=== PATIENT | male | born 1990 | race Caucasian/White ===

== ENCOUNTER 2018-02-22 17:28 | Emergency (ER) | payer OTHER ==
[~2018-02-22] VITALS: Ht 180.3 cm; Wt 80.7 kg
--- NOTE | 2018-02-22 17:30 | NUR ---
BIB SELF W C/O RUE NUMBNESS RADIATING TO NECK AND BACK, DIZZINESS SINCE 1430 TODAY, TO ER BED 11, HOOKED TO MONITOR, AWAITING MD VOGT
--- NOTE | 2018-02-22 17:40 | NUR ---
DR COLLIER AT BEDSIDE
[2018-02-22] MEDS ORDERED: HYDROCODONE/APAP 5/325MG 1 EACH TABLET ONE (17:49)
[2018-02-22] MEDS ORDERED: ONDANSETRON 4 MG TAB.RAPDIS ONE (17:49)
[2018-02-22] MEDS ORDERED: ONDANSETRON 4 MG TAB.RAPDIS SL ONE (18:00)
[2018-02-22] MEDS ORDERED: HYDROCODONE/APAP 5/325MG 1 EACH TABLET PO ONE (18:00)
--- NOTE | 2018-02-22 19:47 | NUR ---
ASSUMED CARE OF PATIENT UPON DISCHARGE. Patient discharged to home in stable condition. Written and verbal after care instructions given. Patient verbalizes understanding of instruction. PT AMBULATORY WITH STEADY GAIT.
[2018-02-22 19:48] VITALS: BP 134/89
== END 2018-02-22 19:49 | disposition home or self-care (01) ==
LOC: ER 17:31
DX: M54.12 Radiculopathy, cervical region (principal); A69.20 Lyme disease, unspecified; F10.10 Alcohol abuse, uncomplicated; Y90.9 Presence of alcohol in blood, level not specified
CPT/HCPCS: 72125-TC; Q0162